=== PATIENT | female | born 1955 | race Two or more races ===

== ENCOUNTER 2016-09-16 15:21 | Emergency (ER) | payer OTHER ==
[2016-09-16] MEDS ORDERED: Ketorolac 60 MG/2 ML SDV IM ONE (15:44)
--- NOTE | 2016-09-16 16:14 | EDM.PDOC ---
ED HPI GENERAL MEDICAL PROBLEM - General Chief Complaint: Lower Extremity Injury/Pain Stated Complaint: LEFT FOOT AND RIGHT HIP PAIN WORK RELATED Time Seen by Provider: 09/16/16 15:29 Source of Information: Reports: Patient History Limitations: Reports: No Limitations - History of Present Illness INITIAL COMMENTS - FREE TEXT/NARRATIVE: Presents reporting left great toe pain. She states that she was moving a commercial vacuum down some steps when the vac slipped and rolled/fell onto her left great toe. In the process of avoiding the vacuum freight car cleaner and to keep from falling, she twisted and pushed up against the stair wall. She now has pain in her low back although she did not fall. left toe Pain Score (Numeric/FACES): 8 - Related Data Allergies Allergy/AdvReac Type Severity Reaction Status Date / Time No Known Allergies Allergy Verified 09/16/16 15:37 Home Meds: Home Meds Diclofenac Sodium [Voltaren] 1 tab PO TIDMEALS PRN #20 tab.ec 09/16/16 [Rx] Past Medical History Cardiovascular History: Reports: Hypertension - Past Surgical History HEENT Surgical History: Reports: Adenoidectomy, Tonsillectomy GI Surgical History: Reports: Appendectomy Other Female Surgeries/Procedures: states had bladder surgery 20 yrs ago in [place] Other Musculoskeletal Surgeries/Procedures:: hx hand surgery Social & Family History - Family History Family Medical History: Noncontributory - Tobacco Use Smoking Status *Q: Current Every Day Smoker Years of Tobacco use: 1 Packs/Tins Daily: 0.5 Second Hand Smoke Exposure: Yes - Alcohol Use Days Per Week of Alcohol Use: 1 Number of Drinks Per Day: 2 Total Drinks Per Week: 2 - Recreational Drug Use Recreational Drug Use: No Drug Use in Last 12 Months: No Review of Systems - Review of Systems Review Of Systems: ROS reveals no pertinent complaints other than HPI. ED EXAM, GENERAL - Physical Exam Exam: See Below Exam Limited By: No Limitations General Appearance: Alert, No Apparent Distress Ears: Normal External Exam Nose: Normal Inspection Throat/Mouth: Normal Inspection Head: Atraumatic, Normocephalic Neck: Normal Inspection Respiratory/Chest: No Respiratory Distress Cardiovascular: Normal Peripheral Pulses, Regular Rate, Rhythm, No Murmur GI/Abdominal: Soft (Female) Exam: Normal External Exam Rectal (Female) Exam: Normal Exam Back Exam: Normal Inspection, Full Range of Motion, Other (mild tenderness just adjacent to the L3-5) Extremities: Other (left great toe ecchymotic and tender dorsally but no erythema, swelling, crepitus or deformity.) Neurological: Alert, Oriented Psychiatric: Normal Affect, Normal Mood Skin Exam: Warm, Dry, Intact, Normal Color, No Rash Lymphatic: No Adenopathy Course - Vital Signs Last Recorded V/S: Last Vital Signs Temp 36.2 C 09/16/16 15:38 Pulse 72 09/16/16 15:38 Resp 18 09/16/16 15:38 BP 213/97 H 09/16/16 15:38 Pulse Ox 98 09/16/16 15:38 - Orders/Labs/Meds Meds: Medications Discontinued Medications Generic Name Dose Route Start Last Admin Trade Name Mat PRN Reason Stop Dose Admin Ketorolac Tromethamine 60 mg 09/16/16 15:44 09/16/16 15:49 Toradol IM 09/16/16 15:45 60 mg ONETIME ONE Administration Departure - Departure Time of Disposition: 16:50 Disposition: Home, Self-Care 01 Condition: Good Clinical Impression: Toe injury Qualifiers: Encounter type: initial encounter Laterality: left Qualified Code(s): S99.922A - Unspecified injury of left foot, initial encounter - Discharge Information Referrals: PCP,None [Primary Care Provider] - [facility] [Outside] [facility] [Outside] Forms: ED Department Discharge Additional Instructions: 1. Elevate left foot. Cool packs 20 minutes every 3 hours 2. Cool packs to low back 20 minutes every 3 hours 3. Diclofenac 3 times a day as needed for discomfort
--- NOTE | 2016-09-16 16:31 | CR ---
EXAMINATION: Left great toe HISTORY: Tenderness COMPARISON: None TECHNIQUE: 3 views FINDINGS: There is no acute osseous abnormality, dislocation, or fracture identified. Bone mineraliz ation and joint spaces appear normal. There is a small to moderate plantar calcaneal spur. IMPRESSION: No acute osseous abnormality identified.
[2016-09-16 17:12] VITALS: BP 193/92
== END 2016-09-16 17:07 | disposition home or self-care (01) ==
LOC: MW.ED 15:21
DX: S90.112A Contusion of left great toe without damage to nail, initial encounter (principal); I10 Essential (primary) hypertension; F17.210 Nicotine dependence, cigarettes, uncomplicated; Z90.49 Acquired absence of other specified parts of digestive tract; Z98.890 Other specified postprocedural states; W01.0XXA Fall on same level from slipping, tripping and stumbling without subsequent striking against object, initial encounter; Y93.E3 Activity, vacuuming
CPT/HCPCS: 73660; 96372; 99283; J1885; 99282

== ENCOUNTER 2017-06-01 11:04 | Emergency (ER) | payer OTHER ==
--- NOTE | 2017-06-01 11:18 | EDM.PDOC ---
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 She was putting in a new light bulb when it broke, cutting her left hand. She complains of no pain but has had some bleeding. No current bleeding. She was told that she needed to report to the ER to have the injury documented. ] Review of systems: As per history of present illness and below otherwise all systems reviewed and negative. Past medical history: As per history of present illness and as reviewed below otherwise noncontributory. Surgical history: As per history of present illness and as reviewed below otherwise noncontributory. Social history: No reported history of drug or alcohol abuse. Family history: As per history of present illness and as reviewed below otherwise noncontributory. Physical exam: HEENT: Atraumatic, normocephalic. Extremities: Dorsum of left hand shows dried blood and a small laceration to the PIP joint of her left fourth finger. No active bleeding. Neurovascular unremarkable. Wound is cleansed with chlorhexidine and shows 0.5 cm easton shaped laceration, very superficial. Neuro: Awake, alert, oriented. Motor and sensory unremarkable throughout. Exam nonfocal. Therapeutics: [Bacitracin] Impression: [Superficial laceration to dorsum L hand] Plan: [Bacitracin and a Band-Aid is applied patient is instructed to change twice daily and that wound should heal without complications. Strict return precautions are reviewed. She is in agreement with today's plan. Tetanus is up- to-date.] Definitive disposition and diagnosis as appropriate pending reevaluation and review of above. - Related Data Allergies Allergy/AdvReac Type Severity Reaction Status Date / Time No Known Allergies Allergy Verified 09/16/16 15:37 Home Meds: Home Meds Diclofenac Sodium [Voltaren] 1 tab PO TIDMEALS PRN #20 tab.ec 09/16/16 [Rx] Past Medical History Cardiovascular History: Reports: Hypertension - Past Surgical History HEENT Surgical History: Reports: Adenoidectomy, Tonsillectomy GI Surgical History: Reports: Appendectomy Other Female Surgeries/Procedures: states had bladder surgery 20 yrs ago in [place] Musculoskeletal Surgical History: Reports: Knee Replacement Other Musculoskeletal Surgeries/Procedures:: hx hand surgery Social & Family History - Family History Family Medical History: Noncontributory - Tobacco Use Smoking Status *Q: Current Every Day Smoker Years of Tobacco use: 1 Packs/Tins Daily: 0.5 Second Hand Smoke Exposure: Yes - Alcohol Use Days Per Week of Alcohol Use: 1 Number of Drinks Per Day: 2 Total Drinks Per Week: 2 - Recreational Drug Use Recreational Drug Use: No Drug Use in Last 12 Months: No ED ROS GENERAL - Review of Systems Review Of Systems: ROS reveals no pertinent complaints other than HPI. ED EXAM, SKIN/RASH Exam: See Below Course - Orders/Labs/Meds Meds: Medications Discontinued Medications Generic Name Dose Route Start Last Admin Trade Name Freq PRN Reason Stop Dose Admin Bacitracin 1 dose 06/01/17 11:38 Bacitracin Oint 1 Gm TOP 06/01/17 11:39 ONETIME ONE Departure - Departure Time of Disposition: 11:47 Disposition: Home, Self-Care 01 Condition: Good Clinical Impression: Superficial laceration of hand - Discharge Information Referrals: Terence Hansen MD [Primary Care Provider] - Forms: ED Department Discharge Additional Instructions: The following information is given to patients seen in the emergency department who are being discharged to home. This information is to outline your options for follow-up care. We provide all patients seen in our emergency department with a follow-up referral. The need for follow-up, as well as the timing and circumstances, are variable depending upon the specifics of your emergency department visit. If you don't have a primary care physician on staff, we will provide you with a referral. We always advise you to contact your personal physician following an emergency department visit to inform them of the circumstance of the visit and for follow-up with them and/or the need for any referrals to a consulting specialist. The emergency department will also refer you to a specialist when appropriate. This referral assures that you have the opportunity for follow-up care with a specialist. All of these measure are taken in an effort to provide you with optimal care, which includes your follow-up. Under all circumstances we always encourage you to contact your private physician who remains a resource for coordinating your care. When calling for follow-up care, please make the office aware that this follow-up is from your recent emergency room visit. If for any reason you are refused follow-up, please contact the [facility] emergency department at and asked to speak to the emergency department charge nurse. [facility] [address] [place] [id number] Follow-up with your primary care provider at clinic listed above in 48-72 hours. Keep clean and dry, apply Neosporin or bacitracin and change bandage twice daily. Return to ER as needed as discussed.
[2017-06-01] MEDS ORDERED: Bacitracin Oint 1 GM U/D Packet TOP ONE (11:38)
[2017-06-01 11:43] VITALS: BP 167/88
== END 2017-06-01 12:33 | disposition home or self-care (01) ==
LOC: MW.ED 11:04
DX: S61.412A Laceration without foreign body of left hand, initial encounter (principal); F17.210 Nicotine dependence, cigarettes, uncomplicated; I10 Essential (primary) hypertension; Z98.890 Other specified postprocedural states; W25.XXXA Contact with sharp glass, initial encounter; Y92.89 Other specified places as the place of occurrence of the external cause; Y99.0 Civilian activity done for income or pay
CPT/HCPCS: 99282

== ENCOUNTER 2019-04-18 13:16 | Emergency (ER) | payer OTHER ==
[2019-04-18 14:24] LABS: BLOOD UREA NITROGEN,BUN 17 mg/dL (7.0-18.0); CARBON DIOXIDE,CO2 23.3 mmol/L (21.0-32.0); CHLORIDE,CL 105 mmol/L (98-107); GLUCOSE RANDOM 139 mg/dL (74-106); POTASSIUM,K 3.9 mmol/L (3.5-5.1); SODIUM,NA 141 mmol/L (136-145)
[2019-04-18] MEDS ORDERED: Aspirin 81 MG Tab.Chew PO ONE (14:38)
[2019-04-18] MEDS: Nitroglycerin 0.4 MG Tab.SL SL PRN ×3 (14:44→14:56)
--- NOTE | 2019-04-18 14:56 | CR ---
Chest: AP view of the chest is obtained. Comparison: Prior chest x-ray 10/14/13. Heart size at the upper limits of normal. Tortuous thoracic aorta is seen. Lungs are clear with no acute parenchymal change. Bony structures are grossly intact. Impression: 1. Nothing acute is seen on AP chest x-ray. Diagnostic code #2 Study was dictated in [place] Standard Time
[2019-04-18] MEDS ORDERED: Morphine 10 MG/ML Syringe IVPUSH ONE (15:13)
[2019-04-18] MEDS ORDERED: Iopamidol 755 MG/ML 200 ML Multipack Bottle IVPUSH ONE (16:16)
--- NOTE | 2019-04-18 16:35 | EDM.PDOC ---
ED HPI GENERAL MEDICAL PROBLEM - General Chief Complaint: Chest Pain Stated Complaint: CHEST PAIN Time Seen by Provider: 04/18/19 14:15 Source of Information: Reports: Patient, Family History Limitations: Reports: No Limitations - History of Present Illness INITIAL COMMENTS - FREE TEXT/NARRATIVE: Patient 63-year-old female with past medical history of hypertension, smoking history presenting with a chief complaint of chest pain. Patient chest pain started this morning and gradually worsened over time. Patient states the pain is on the left side of the chest and is sharp and stabbing in nature. Patient states the pain is worse when she takes a deep breath. Patient does feel associated shortness of breath. Patient denies any nausea, vomiting, fever. Patient has no coughing or lower extremity swelling. Patient has no history of PE or DVT. Patient states she had similar episode about 10 years ago. Patient denies any prior history of SD or stroke. In addition to that documented in the HPI above, the additional ROS was obtained : Constitutional: Denies fevers or chills Eyes: Denies vision changes ENMT: Denies sore throat CV: Per HPI Resp: Per HPI GI: Denies vomiting or diarrhea : Denies painful urination MSK: Denies recent trauma Skin: Denies new rashes Neuro: Denies new numbness or tingling or weakness Endocrine: Denies unexpected weight loss Heme: Denies bleeding disorders I have reviewed the triage vital signs Const: Well nourished, well developed, appears stated age Eyes: PERRL, no conjunctival injection HENT: NCAT, Neck supple without meningismus CV: RRR, Warm, well-perfused extremities RESP: CTAB, Unlabored respiratory effort GI: soft, non-tender, non-distended, no masses MSK: No gross deformities appreciated Skin: Warm, dry. No rashes Neuro: Alert, space and missile operations II-XII grossly intact. Sensation and motor function of extremities grossly intact. Psych: Appropriate mood and affect Assessment and plan: Patient is a 63-year-old female with sharp pleuritic type chest pain presenting with several hours after onset. Symptoms are concerning for ACS versus pulmonary embolism versus costochondritis. Patient has a heart score of 3 and serial troponins repeated with slight change but still within normal limits. Patient chest pain has since resolved and patient only reports nausea at this time. Patient given 2 antiemetics. PE study was negative. Patient will have third troponin done to trend for evaluation of ACS. Patient's serial EKGs have all been within normal limits and demonstrating normal sinus rhythm without acute ischemic changes. Left Chest Pain Score (Numeric/FACES): 6 - Related Data Allergies Allergy/AdvReac Type Severity Reaction Status Date / Time No Known Allergies Allergy Verified 04/18/19 13:20 Home Meds: Home Meds Non-Formulary Medication [NF Drug] 1 each PO DAILY 04/18/19 [History] Past Medical History Cardiovascular History: Reports: Hypertension Genitourinary History: Reports: None Neurological History: Reports: Other (See Below) Other Neuro History: stroke - Infectious Disease History Infectious Disease History: Reports: Chicken Pox - Past Surgical History HEENT Surgical History: Reports: Adenoidectomy, Tonsillectomy GI Surgical History: Reports: Appendectomy Other Female Surgeries/Procedures: states had bladder surgery 20 yrs ago in [place] Musculoskeletal Surgical History: Reports: Knee Replacement Other Musculoskeletal Surgeries/Procedures:: hx hand surgery Social & Family History - Family History Family Medical History: Noncontributory - Tobacco Use Smoking Status *Q: Current Every Day Smoker Years of Tobacco use: 2 Packs/Tins Daily: 0.5 - Caffeine Use Caffeine Use: Reports: Coffee - Recreational Drug Use Recreational Drug Use: No ED ROS GENERAL - Review of Systems Review Of Systems: See Below ED EXAM, GENERAL - Physical Exam Exam: See Below Course - Vital Signs Last Recorded V/S: Last Vital Signs Temp 36.1 C 04/18/19 13:20 Pulse 60 04/18/19 17:52 Resp 14 04/18/19 17:52 BP 165/84 H 04/18/19 17:52 Pulse Ox 96 04/18/19 17:52 - Orders/Labs/Meds Orders: Active Orders 24 hr Category Date Time Status EKG 12 Lead [EKG Documentation Completion] [RC] ROUTINE Care 04/18/19 13:27 Active EKG 12 Lead [EKG Documentation Completion] [RC] STAT Care 04/18/19 16:57 Active Labs: Laboratory Tests 04/18/19 04/18/19 04/18/19 Range/Units 13:22 13:22 13:22 WBC 6.31 (4.0-11.0) K/uL RBC 4.65 (4.30-5.90) M/uL Hgb 14.6 (12.0-16.0) g/dL Hct 42.1 (36.0-46.0) % MCV 90.5 (80.0-98.0) fL MCH 31.4 (27.0-32.0) pg MCHC 34.7 (31.0-37.0) g/dL RDW Std Deviation 49.9 (28.0-62.0) fl RDW Coeff of Michelle 15 (11.0-15.0) % Plt Count 253 (150-400) K/uL MPV 9.30 (7.40-12.00) fL Neut % (Auto) 64.5 (48.0-80.0) % Lymph % (Auto) 27.6 (16.0-40.0) % Boundary % (Auto) 6.0 (0.0-15.0) % Eos % (Auto) 1.6 (0.0-7.0) % Baso % (Auto) 0.3 (0.0-1.5) % Neut # (Auto) 4.1 (1.4-5.7) K/uL Lymph # (Auto) 1.7 (0.6-2.4) K/uL Boundary # (Auto) 0.4 (0.0-0.8) K/uL Eos # (Auto) 0.1 (0.0-0.7) K/uL Baso # (Auto) 0.0 (0.0-0.1) K/uL Nucleated RBC % 0.0 /100WBC Nucleated RBCs # 0 K/uL INR 0.94 D-Dimer, Quantitative 0.39 (0.0-0.50) mg/L FEU Sodium 141 (136-145) mmol/L Potassium 3.9 (3.5-5.1) mmol/L Chloride 105 (98-107) mmol/L Carbon Dioxide 23.3 (21.0-32.0) mmol/L BUN 17 (7.0-18.0) mg/dL Creatinine 0.7 (0.6-1.0) mg/dL Est Cr Clr Drug Dosing 58.32 mL/min Estimated GFR (MDRD) > 60.0 ml/min Glucose 139 H (74-106) mg/dL Calcium 9.3 (8.5-10.1) mg/dL Total Bilirubin 0.3 (0.2-1.0) mg/dL AST 17 (15-37) IU/L ALT 24 (14-63) IU/L Alkaline Phosphatase 79 (46-116) U/L Troponin I < 0.050 (0.000-0.056) ng/mL Total Protein 7.3 (6.4-8.2) g/dL Albumin 4.0 (3.4-5.0) g/dL Globulin 3.3 (2.6-4.0) g/dL Albumin/Globulin Ratio 1.2 (0.9-1.6) 04/18/19 Range/Units 17:07 WBC (4.0-11.0) K/uL RBC (4.30-5.90) M/uL Hgb (12.0-16.0) g/dL Hct (36.0-46.0) % MCV (80.0-98.0) fL MCH (27.0-32.0) pg MCHC (31.0-37.0) g/dL RDW Std Deviation (28.0-62.0) fl RDW Coeff of Michelle (11.0-15.0) % Plt Count (150-400) K/uL MPV (7.40-12.00) fL Neut % (Auto) (48.0-80.0) % Lymph % (Auto) (16.0-40.0) % Boundary % (Auto) (0.0-15.0) % Eos % (Auto) (0.0-7.0) % Baso % (Auto) (0.0-1.5) % Neut # (Auto) (1.4-5.7) K/uL Lymph # (Auto) (0.6-2.4) K/uL Boundary # (Auto) (0.0-0.8) K/uL Eos # (Auto) (0.0-0.7) K/uL Baso # (Auto) (0.0-0.1) K/uL Nucleated RBC % /100WBC Nucleated RBCs # K/uL INR D-Dimer, Quantitative (0.0-0.50) mg/L FEU Sodium (136-145) mmol/L Potassium (3.5-5.1) mmol/L Chloride (98-107) mmol/L Carbon Dioxide (21.0-32.0) mmol/L BUN (7.0-18.0) mg/dL Creatinine (0.6-1.0) mg/dL Est Cr Clr Drug Dosing mL/min Estimated GFR (MDRD) ml/min Glucose (74-106) mg/dL Calcium (8.5-10.1) mg/dL Total Bilirubin (0.2-1.0) mg/dL AST (15-37) IU/L ALT (14-63) IU/L Alkaline Phosphatase (46-116) U/L Troponin I 0.054 (0.000-0.056) ng/mL Total Protein (6.4-8.2) g/dL Albumin (3.4-5.0) g/dL Globulin (2.6-4.0) g/dL Albumin/Globulin Ratio (0.9-1.6) Meds: Medications Discontinued Medications Generic Name Dose Route Start Last Admin Trade Name Freq PRN Reason Stop Dose Admin Al Hydroxide/Mg Hydroxide 30 ml 04/18/19 16:57 04/18/19 17:22 Mag-Al Plus PO 04/18/19 16:58 30 ml ONETIME ONE Administration Aspirin 324 mg 04/18/19 14:38 04/18/19 14:48 Aspirin PO 04/18/19 14:39 324 mg ONETIME ONE Administration Iopamidol 50 ml 04/18/19 16:16 04/18/19 16:17 Isovue Multipack-370 (76%) IVPUSH 04/18/19 16:17 50 ml ONETIME ONE Administration Metoclopramide HCl 10 mg 04/18/19 18:00 04/18/19 18:12 Reglan IVPUSH 04/18/19 18:01 10 mg ONETIME ONE Administration Morphine Sulfate 6 mg 04/18/19 15:13 04/18/19 15:19 Morphine IVPUSH 04/18/19 15:14 6 mg ONETIME ONE Administration Nitroglycerin 0.4 mg 04/18/19 14:38 04/18/19 14:56 Nitrostat SL 0.4 mg Q5M PRN Administration Chest Pain Ondansetron HCl 4 mg 04/18/19 16:57 04/18/19 17:22 Zofran IVPUSH 04/18/19 16:58 4 mg ONETIME ONE Administration Departure - Departure Time of Disposition: 18:43 Disposition: Still A Patient 30 Clinical Impression: Chest pain Referrals: Crystal Mcpherson NP [Primary Care Provider] - Forms: ED Department Discharge Sepsis Event Note - Evaluation Sepsis Screening Result: No Definite Risk - Focused Exam Vital Signs: Vital Signs Temp Pulse Resp BP BP Pulse Ox 04/18/19 17:52 60 14 165/84 H 96 04/18/19 17:23 73 18 163/80 H 96 04/18/19 14:59 79 18 152/90 H 96 04/18/19 14:56 142/84 H 04/18/19 14:50 151/84 H 04/18/19 14:44 179/89 H 04/18/19 14:31 74 18 148/74 H 96 04/18/19 13:20 36.1 C 93 20 197/97 H 99 Date Exam was Performed: 04/18/19 Time Exam was Performed: 18:39 - My Orders Last 24 Hours: My Active Orders 04/18/19 13:27 EKG 12 Lead [EKG Documentation Completion] [RC] ROUTINE 04/18/19 16:57 EKG 12 Lead [EKG Documentation Completion] [RC] STAT - Assessment/Plan Last 24 Hours: My Active Orders 04/18/19 13:27 EKG 12 Lead [EKG Documentation Completion] [RC] ROUTINE 04/18/19 16:57 EKG 12 Lead [EKG Documentation Completion] [RC] STAT
--- NOTE | 2019-04-18 16:40 | CT ---
CT chest Technique: Multiple axial sections through the chest were obtained. Intravenous contrast was utilized. Study has been performed as a pulmonary angiogram protocol. Findings: Pulmonary arteries are well opacified. No filling defects are seen to indicate pulmonary embolism. Aorta shows no aneurysm. Mediastinum and hilar region show no adenopathy. Minimal coronary artery calcification is seen. No pericardial thickening is seen. Visualized upper abdominal structures shows no discrete abnormality. Lung window settings were reviewed. Lungs show no acute parenchymal change. No pleural effusions are noted. No pneumothorax is seen. Bone window settings were reviewed. Slight deformity is noted within several posterior left lower ribs compatible with old healed rib fractures. No acute osseous finding is appreciated. Impression: 1. No findings of pulmonary embolism. 2. Nothing acute is appreciated on CT study of the chest. Diagnostic code #1 This report was dictated in [place] Standard Time
[2019-04-18] MEDS ORDERED: Ondansetron 4 MG/2 ML SDV IVPUSH ONE (16:57)
[2019-04-18] MEDS ORDERED: Aluminum Hydroxide/Magnesium Hydroxide/Simethicone Susp 30 ML Cup PO ONE (16:57)
[2019-04-18] MEDS ORDERED: Metoclopramide 10 MG/2 ML SDV IVPUSH ONE (18:00)
[2019-04-18 19:25] VITALS: BP 121/85; PULSE 64
== END 2019-04-18 20:11 | disposition still patient (30) ==
LOC: MW.ED 13:16
DX: R07.81 Pleurodynia (principal); I10 Essential (primary) hypertension; F17.210 Nicotine dependence, cigarettes, uncomplicated; Z98.890 Other specified postprocedural states; Z90.49 Acquired absence of other specified parts of digestive tract
CPT/HCPCS: 36415; 71045; 71275; 80053; 84484; 85025; 85379; 85610; 93005; 96374; 96375; 99285; A9270; J2270; J2405; J2765; Q9967

== ENCOUNTER 2022-12-04 15:33 | Emergency (ER) | payer BC ==
[2022-12-04 16:43] VITALS: BP 196/102; PULSE 81
== END 2022-12-04 17:42 | disposition home or self-care (01) ==
LOC: MW.ED 15:33
DX: K04.7 Periapical abscess without sinus (principal); I10 Essential (primary) hypertension; I25.2 Old myocardial infarction
CPT/HCPCS: 99282; 99283